=== PATIENT | female | born 1995 | race Caucasian/White ===

== ENCOUNTER 2018-03-20 10:10 | Emergency (ER) | payer BC ==
[~2018-03-20] VITALS: Ht 170.2 cm; Wt 137.1 kg
[2018-03-20 10:33] VITALS: BP 140/74; TEMP 98.3
[2018-03-20] MEDS ORDERED: [UNRECOGNIZED DRUG - OTHER] (11:54)
[2018-03-20] MEDS ORDERED: DESYREL 50MG50 MG PO (11:54)
[2018-03-20] MEDS ORDERED: BIRTH CONTROL (11:54)
[2018-03-20 12:02] LABS: COLLECTION METHOD CATHETER
[2018-03-20 12:02] LABS: BASO # 0.1 (0.0-0.2); BASO % 0.7 % (0.0-2.0); EOS # 0.3 (0.0-0.7); EOS % 2.3 % (0-4.0); GRAN # 9.2 (1.4-6.5); GRAN % 70.1 % (42.2-75.2); HEMATOCRIT 41.3 % (37.0-47.0); HEMOGLOBIN 13.6 g/dl (12.5-16.0); LYMPH # 2.7 (1.2-3.4); LYMPH % 20.6 % (20.0-51.0); MEAN CELL VOLUME 87 fl (80.0-100.0); MEAN CORPUSCULAR HEMOGLOBIN 29 pg (27.0-31.0); MEAN CORPUSCULAR HGB CONC 33 g/dl (33.0-37.0); MEAN PLATELET VOLUME 8.7 fl (7.4-10.4); MONO # 0.8 (0.1-0.6); PLATELET COUNT 396 K/mm3 (130-400); RED BLOOD COUNT 4.75 M/mm3 (4.10-5.30); REDCELL DISTRIBUTION WIDTH-CV 13.7 % (11.5-14.5)
[2018-03-20 12:04] LABS: ALBUMIN 4.2 gm/dL (3.5-5.0); BILIRUBIN,TOTAL 0.5 mg/dL (0.0-1.0); C-REACTIVE PROTEIN 1.3 mg/dL (0.0-0.9); CALCIUM 9.5 mg/dL (8.4-10.2); CREATININE, serum 0.68 mg/dL (0.52-1.25); POTASSIUM 4.4 mmol/L (3.4-5.0)
[2018-03-20 12:21] LABS: MUCOUS Present /lpf; PH 5 (5-8); SQUAMOUS EPITHELIAL 0-2 /hpf; URINE APPEARANCE Hazy; URINE BACTERIA None Seen /hpf; URINE BILIRUBIN Negative (NEGATIVE); URINE BLOOD 3+ (NEGATIVE); URINE COLOR Yellow; URINE GLUCOSE Negative (NEGATIVE); URINE KETONE Negative (NEGATIVE); URINE LEUKOCYTE ESTERASE Negative (NEGATIVE); URINE NITRATE Negative (NEGATIVE); URINE PROTEIN(semi-quant) 1+ (NEGATIVE); URINE RBC >50 /hpf; URINE UROBILINOGEN Negative (NEGATIVE)
[2018-03-20 13:41] VITALS: PULSE 80
== END 2018-03-20 13:43 | disposition home or self-care (01) ==
LOC: COL.ER 10:10
PROVIDERS: Physician Assistant
DX: R10.31 Right lower quadrant pain (principal); Z87.42 Personal history of other diseases of the female genital tract; Z90.89 Acquired absence of other organs
CPT/HCPCS: J7030; Q9967

== ENCOUNTER 2020-02-17 05:37 | Emergency (ER) | payer BC ==
[~2020-02-17] VITALS: Ht 177.8 cm; Wt 127.3 kg
[~2020-02-17 05:37] MED LIST: BIRTH CONTROL; DESYREL 50MG50 MG PO; [UNRECOGNIZED DRUG - OTHER]
[2020-02-17 05:43] VITALS: BP 141/77; TEMP 97.8
[2020-02-17 07:08] LABS: ARTERIAL BLD GAS TCO2 CT 21.7; ARTERIAL BLOOD GAS BASE EXCESS -2.7 (-2-2); ARTERIAL BLOOD GAS HCO3 20.7 meq/L (22-26); ARTERIAL BLOOD GAS PO2 87.4 mmHg (80-100); ARTERIAL BLOOD GAS pH 7.43 (7.35-7.45)
[2020-02-17 07:28] VITALS: PULSE 94
== END 2020-02-17 07:28 | disposition home or self-care (01) ==
LOC: COL.ER 05:37
PROVIDERS: Emergency Medicine
DX: F41.8 Other specified anxiety disorders (principal); R06.4 Hyperventilation